=== PATIENT | male | born 1970 | race Caucasian/White ===

== ENCOUNTER 2018-01-18 03:02 | Inpatient (IN) | payer MEDICARE, MEDICAID ==
[2018-01-18] MEDS: OCTREOTIDE 50 MCG in SOD CHLORIDE 0.9% 25 ML IVPB (04:30)
[2018-01-18] MEDS: SOD CHLORIDE 0.9% 1,000 ML IV (04:41)
[2018-01-18] MEDS: PANTOPRAZOLE 40 MG INJ IV (04:41)
[2018-01-18] MEDS: ONDANSETRON 4 MG INJ IV ×3 (04:41→20:46)
[2018-01-18] MEDS: morphine 4 MG/ML VIAL IV ×2 (04:42→07:14)
[2018-01-18] MEDS: OCTREOTIDE 500 MCG in SOD CHLORIDE 0.9% 49 ML IV (04:45)
[2018-01-18] MEDS: PANTOPRAZOLE IV 80 MG in SOD CHLORIDE 0.9% 100 ML IV ×2 (04:45→19:11)
[2018-01-18 05:16] LABS: WHITE BLOOD COUNT 1.6 10^3/ul (4.8-10.8)
[2018-01-18 05:16] LABS: ABNORMAL IP MESSAGE 1; HEMATOCRIT 30.9 % (42.0-52.0); MEAN CORPUSCULAR HEMOGLOBIN 28.5 pg (29.0-33.0); MEAN CORPUSCULAR HGB CONC 32.4 g/dl (32.0-37.0); PLATELET COUNT 37 10^3/UL (140-415); POSITIVE DIFF @See below; RED BLOOD COUNT 3.51 10^6/ul (4.70-6.10); RED CELL DISTRIBUTION WIDTH 19.5 % (11.5-14.5)
[2018-01-18 05:29] LABS: ALANINE AMINOTRANSFERASE 60 IU/L (13-69); ALBUMIN 3.1 g/dl (3.3-4.9); ALBUMIN/GLOBULIN RATIO 0.88; ALKALINE PHOSPHATASE 241 IU/L (42-121); ANION GAP 16 (8-16); ASPARTATE AMINO TRANSFERASE 107 IU/L (15-46); BLOOD UREA NITROGEN 12 mg/dl (7-20); CALCIUM 8.7 mg/dl (8.4-10.2); CARBON DIOXIDE 25 mmol/L (21-31); CHLORIDE 111 mmol/L (97-110); CREATININE 0.64 mg/dl (0.61-1.24); GLUCOSE 79 mg/dl (70-220); LIPASE 42 U/L (23-300); POTASSIUM 4.1 mmol/L (3.5-5.1); SODIUM 148 mmol/L (135-144); TOTAL PROTEIN 6.6 g/dl (6.1-8.1)
[2018-01-18 05:33] LABS: INR 1.42; PROTIME 17.6 Sec (11.9-14.9); PT RATIO 1.4
[2018-01-18 05:34] LABS: PARTIAL THROMBOPLASTIN TIME 36.5 Sec (25.0-35.0)
[2018-01-18 05:55] LABS: ADD MAN DIFF? YES
[2018-01-18 05:57] LABS: PATH REVIEW? YES
[2018-01-18] MEDS ORDERED: NACL 0.9% 3 ML SYG IV (06:30)
[2018-01-18 06:42] LABS: ADD UMIC YES; UR ASCORBIC ACID 20 mg/dL (NEGATIVE); UR BILIRUBIN (Dip) NEGATIVE (NEGATIVE); UR BLOOD (Dip) 2+ mg/dL (NEGATIVE); UR CLARITY CLEAR (CLEAR); UR COLOR YELLOW (YELLOW); UR GLUCOSE (Dip) NEGATIVE (NEGATIVE); UR KETONES (Dip) NEGATIVE (NEGATIVE); UR LEUKOCYTE ESTERASE (Dip) NEGATIVE Leu/ul (NEGATIVE); UR NITRITE (Dip) NEGATIVE (NEGATIVE); UR RBC 6 /HPF (0-5); UR SPECIFIC GRAVITY (Dip) 1.015 (1.003-1.030); UR TOTAL PROTEIN (Dip) NEGATIVE (NEGATIVE); UR UROBILINOGEN (Dip) NEGATIVE (NEGATIVE); UR WBC 1 /HPF (0-5)
[2018-01-18 06:48] LABS: ANISOCYTOSIS 1+ (0-0); BAND NEUTROPHILS % (M) 6 % (0-4); EOSINOPHILS % (M) 7 % (0-7); GIANT THROMBO% (M) 1 % (0-0); HYPOCHROMASIA 1+ (0-0); LYMPHOCYTES #M 0.3 10^3/ul (0.8-2.9); LYMPHOCYTES % (M) 24 % (15-51); MICROCYTOSIS 1+ (0-0); MONOCYTE #M 0.1 10^3/ul (0.3-0.9); MONOCYTES % (M) 9 % (0-11); OVALOCYTES 1+ (0-0); PLATELET ESTIMATE SIG DECREASED; POIKILOCYTOSIS 2+ (0-0); POLYCHROMASIA 1+ (0-0); SEG NEUT #M 0.9 10^3/ul (1.6-7.5); SEGMENTED NEUTROPHILS (M) % 54 % (39-77)
[2018-01-18 07:11] LABS: CANNABINOIDS Negative (NEGATIVE)
[2018-01-18 07:23] LABS: AMPHETAMINE/METHAMPHETAMINE Negative (NEGATIVE); BARBITURATES Negative (NEGATIVE); BENZODIAZEPINES Positive (NEGATIVE); COCAINE Negative (NEGATIVE); OPIATES Positive (NEGATIVE)
[2018-01-18 09:16] LABS: HAAIG REFLEX REFLEX FILED
[2018-01-18 09:48] LABS: INR 1.34; PROTIME 16.8 Sec (11.9-14.9); PT RATIO 1.3
[2018-01-18 09:49] LABS: PARTIAL THROMBOPLASTIN TIME 31.2 Sec (25.0-35.0)
[2018-01-18] MEDS: SOD CHLORIDE 0.45% 1,000 ML IV ×3 (11:01→23:43)
[2018-01-18] MEDS: morphine 2 MG INJ IV ×3 (11:16→20:33)
[2018-01-18] MEDS: SOD CHLORIDE 0.9% 250 ML IV* (14:59)
[2018-01-18 15:45] LABS: HEPATITIS B SURFACE ANTIBODY NEGATIVE (NEGATIVE)
[2018-01-18 16:11] LABS: AMMONIA 111 umol/l (9-30)
[2018-01-18] MEDS: OCTREOTIDE 1 MG in DEXTROSE 5% 95 ML IV (17:00)
[2018-01-18 17:57] LABS: HEPATITIS B SURFACE ANTIGEN NEGATIVE (NEGATIVE)
[2018-01-18] MEDS ORDERED: PANTOPRAZOLE 40 MG INJ IV (18:00)
[2018-01-18 18:14] LABS: HEPATITIS B CORE ANTIBODY NEGATIVE (NEGATIVE); HEPATITIS C VIRAL ANTIBODY NEGATIVE (NEGATIVE)
[2018-01-18 18:37] LABS: HIV 1&2 ANTIBODY NEGATIVE (NEGATIVE)
[2018-01-18] MEDS: DIPHENHYDRAMINE 50 MG INJ IV (23:43)
[2018-01-19 00:09] LABS: TYPE AND SCREEN 1 1
[2018-01-19] MEDS: PANTOPRAZOLE IV 80 MG in SOD CHLORIDE 0.9% 100 ML IV ×3 (03:00→23:20)
[2018-01-19 05:25] LABS: WHITE BLOOD COUNT 1.4 10^3/ul (4.8-10.8)
[2018-01-19 05:25] LABS: ABNORMAL IP MESSAGE 1; HEMATOCRIT 29.4 % (42.0-52.0); HEMOGLOBIN 9.5 g/dl (14.0-18.0); MEAN CORPUSCULAR HGB CONC 32.3 g/dl (32.0-37.0); MEAN CORPUSCULAR VOLUME 89.6 fl (82.0-101.0); PLATELET COUNT 35 10^3/UL (140-415); POSITIVE DIFF @See below; RED BLOOD COUNT 3.28 10^6/ul (4.70-6.10); RED CELL DISTRIBUTION WIDTH 19.1 % (11.5-14.5)
[2018-01-19 05:27] LABS: ADD MAN DIFF? YES
[2018-01-19 05:47] LABS: CHOL/HDL RATIO 2.5 RATIO; CHOLESTEROL 106 mg/dl (100-200); HDL CHOLESTEROL 42 mg/dl (27-67); LDL CHOLESTEROL,CALCULATED 54 mg/dl; TRIGLYCERIDES 50 mg/dl (0-149)
[2018-01-19 05:47] LABS: MAGNESIUM 1.4 mg/dl (1.7-2.5)
[2018-01-19 05:56] LABS: HEMOGLOBIN A1C 4.6 % (0-5.9)
[2018-01-19 05:59] LABS: INR 1.51; PROTIME 18.5 Sec (11.9-14.9); PT RATIO 1.4
[2018-01-19] MEDS: morphine 2 MG INJ IV ×4 (08:27→23:06)
[2018-01-19] MEDS: ONDANSETRON 4 MG INJ IV ×3 (08:32→23:14)
[2018-01-19] MEDS: DIPHENHYDRAMINE 50 MG INJ IV ×2 (08:33→18:03)
[2018-01-19 09:13] LABS: ANISOCYTOSIS 1+ (0-0); BAND NEUTROPHILS % (M) 5 % (0-4); EOSINOPHILS % (M) 7 % (0-7); LYMPHOCYTES #M 0.3 10^3/ul (0.8-2.9); LYMPHOCYTES % (M) 24 % (15-51); METAMYELOCYTES %M 1 % (0-0); MICROCYTOSIS 1+ (0-0); MONOCYTE #M 0.1 10^3/ul (0.3-0.9); MONOCYTES % (M) 13 % (0-11); PLATELET ESTIMATE SIG DECREASED; POIKILOCYTOSIS 2+ (0-0); POLYCHROMASIA 3+ (0-0); SEG NEUT #M 0.7 10^3/ul (1.6-7.5); SEGMENTED NEUTROPHILS (M) % 50 % (39-77); SMUDGE%M 5 % (0-0)
[2018-01-19] MEDS: SPIRONOLACTONE 50 MG TAB PO (11:22)
[2018-01-19] MEDS: FUROSEMIDE 40 MG TAB PO (11:25)
[2018-01-19] MEDS: MAGNESIUM SULFATE 3 GM in DEXTROSE 5% 100 ML IVPB (11:26)
[2018-01-19] MEDS: OCTREOTIDE 1 MG in DEXTROSE 5% 95 ML IV (13:23)
[2018-01-19] MEDS: PROPOFOL 20 ML (14:47)
[2018-01-19] MEDS: MIDAZOLAM 1 MG/ML 2 ML INJ (14:47)
[2018-01-19] MEDS ORDERED: ONDANSETRON 4 MG INJ IV (15:00)
[2018-01-19] MEDS ORDERED: HYDROmorphONE (0.2 MG/ML) 10ML SYG IV (15:00)
[2018-01-19] MEDS: SOD CHLORIDE 0.45% 1,000 ML IV (15:28)
[2018-01-19 16:19] LABS: ABNORMAL IP MESSAGE 1; HEMATOCRIT 28.2 % (42.0-52.0); HEMOGLOBIN 9.4 g/dl (14.0-18.0); MEAN CORPUSCULAR HEMOGLOBIN 29.4 pg (29.0-33.0); MEAN CORPUSCULAR HGB CONC 33.3 g/dl (32.0-37.0); MEAN CORPUSCULAR VOLUME 88.1 fl (82.0-101.0); POSITIVE DIFF @See below; RED CELL DISTRIBUTION WIDTH 18.8 % (11.5-14.5)
[2018-01-19 16:20] LABS: WHITE BLOOD COUNT 1.7 10^3/ul (4.8-10.8)
[2018-01-19 16:21] LABS: ADD MAN DIFF? YES; PLATELET COUNT 35 10^3/UL (140-415)
[2018-01-19 16:44] LABS: BAND NEUTROPHILS % (M) 2 % (0-4); EOSINOPHILS % (M) 6 % (0-7); LYMPHOCYTES #M 0.2 10^3/ul (0.8-2.9); LYMPHOCYTES % (M) 14 % (15-51); MICROCYTOSIS 1+ (0-0); MONOCYTE #M 0.1 10^3/ul (0.3-0.9); MONOCYTES % (M) 10 % (0-11); PLATELET ESTIMATE SIG DECREASED; SEG NEUT #M 1.2 10^3/ul (1.6-7.5); SEGMENTED NEUTROPHILS (M) % 69 % (39-77); SMUDGE%M 104 % (0-0)
[2018-01-19 20:23] LABS: ADD MAN DIFF? NO
[2018-01-19 20:27] LABS: ABNORMAL IP MESSAGE 1; BASOPHILS % 0.6 % (0.0-2.0); EOSINOPHILS # 0.1 10^3/ul (0.0-0.5); EOSINOPHILS % 6.1 % (0.0-7.0); HEMATOCRIT 29.1 % (42.0-52.0); HEMOGLOBIN 9.7 g/dl (14.0-18.0); LYMPHOCYTES # 0.3 10^3/ul (0.8-2.9); LYMPHOCYTES % 14.9 % (15.0-51.0); MEAN CORPUSCULAR HEMOGLOBIN 29.5 pg (29.0-33.0); MEAN CORPUSCULAR HGB CONC 33.3 g/dl (32.0-37.0); MEAN CORPUSCULAR VOLUME 88.4 fl (82.0-101.0); MONOCYTE # 0.3 10^3/ul (0.3-0.9); MONOCYTES % 16.6 % (0.0-11.0); NEUTROPHIL # 1.1 10^3/ul (1.6-7.5); NEUTROPHILS % 61.8 % (39.0-77.0); POSITIVE DIFF @See below; RED BLOOD COUNT 3.29 10^6/ul (4.70-6.10)
[2018-01-19 20:33] LABS: WHITE BLOOD COUNT 1.8 10^3/ul (4.8-10.8)
[2018-01-19 20:33] LABS: PLATELET COUNT 35 10^3/UL (140-415)
[2018-01-20] MEDS: DIPHENHYDRAMINE 50 MG INJ IV ×4 (01:24→23:46)
[2018-01-20] MEDS: SOD CHLORIDE 0.45% 1,000 ML IV (02:35)
[2018-01-20 03:13] LABS: ADD MAN DIFF? NO
[2018-01-20 03:17] LABS: ABNORMAL IP MESSAGE 1; BASOPHILS % 0.5 % (0.0-2.0); EOSINOPHILS # 0.1 10^3/ul (0.0-0.5); EOSINOPHILS % 6.3 % (0.0-7.0); HEMATOCRIT 32.3 % (42.0-52.0); HEMOGLOBIN 10.6 g/dl (14.0-18.0); LYMPHOCYTES # 0.2 10^3/ul (0.8-2.9); LYMPHOCYTES % 12.1 % (15.0-51.0); MEAN CORPUSCULAR HEMOGLOBIN 28.9 pg (29.0-33.0); MEAN CORPUSCULAR HGB CONC 32.8 g/dl (32.0-37.0); MONOCYTE # 0.3 10^3/ul (0.3-0.9); MONOCYTES % 14.7 % (0.0-11.0); NEUTROPHIL # 1.3 10^3/ul (1.6-7.5); NEUTROPHILS % 66.4 % (39.0-77.0); POSITIVE DIFF @See below; RED BLOOD COUNT 3.67 10^6/ul (4.70-6.10); RED CELL DISTRIBUTION WIDTH 18.9 % (11.5-14.5)
[2018-01-20 03:17] LABS: WHITE BLOOD COUNT 1.9 10^3/ul (4.8-10.8)
[2018-01-20 03:20] LABS: PLATELET COUNT 55 10^3/UL (140-415)
[2018-01-20] MEDS: LORAZEPAM 2 MG INJ IV ×2 (03:55→11:37)
[2018-01-20] MEDS: morphine 2 MG INJ IV ×5 (05:33→23:46)
[2018-01-20 08:15] LABS: WHITE BLOOD COUNT 1.5 10^3/ul (4.8-10.8)
[2018-01-20 08:15] LABS: ABNORMAL IP MESSAGE 1; HEMATOCRIT 29.7 % (42.0-52.0); MEAN CORPUSCULAR HEMOGLOBIN 29.7 pg (29.0-33.0); MEAN CORPUSCULAR HGB CONC 33.7 g/dl (32.0-37.0); MEAN CORPUSCULAR VOLUME 88.1 fl (82.0-101.0); PLATELET COUNT 32 10^3/UL (140-415); POSITIVE DIFF @See below; RED BLOOD COUNT 3.37 10^6/ul (4.70-6.10)
[2018-01-20 08:27] LABS: ADD MAN DIFF? YES
[2018-01-20 08:29] LABS: ANION GAP 10 (8-16); BLOOD UREA NITROGEN 12 mg/dl (7-20); CALCIUM 8.4 mg/dl (8.4-10.2); CARBON DIOXIDE 28 mmol/L (21-31); CHLORIDE 107 mmol/L (97-110); CREATININE 0.73 mg/dl (0.61-1.24); GLUCOSE 95 mg/dl (70-220); MAGNESIUM 1.3 mg/dl (1.7-2.5); POTASSIUM 4.3 mmol/L (3.5-5.1); SODIUM 141 mmol/L (135-144)
[2018-01-20] MEDS: PANTOPRAZOLE IV 80 MG in SOD CHLORIDE 0.9% 100 ML IV ×2 (09:00→11:02)
[2018-01-20] MEDS: OCTREOTIDE 1 MG in DEXTROSE 5% 95 ML IV ×2 (09:00→11:03)
[2018-01-20 09:48] LABS: ANISOCYTOSIS 1+ (0-0); BAND NEUTROPHILS #M 0.1 10^3/ul (0.0-0.6); BAND NEUTROPHILS % (M) 10 % (0-4); BASOPHILS % (M) 1 % (0-2); EOSINOPHILS % (M) 3 % (0-7); GIANT THROMBO% (M) 3 % (0-0); LYMPHOCYTES #M 0.4 10^3/ul (0.8-2.9); LYMPHOCYTES % (M) 28 % (15-51); MONOCYTE #M 0.2 10^3/ul (0.3-0.9); MONOCYTES % (M) 14 % (0-11); PLATELET ESTIMATE DECREASED; SEG NEUT #M 0.7 10^3/ul (1.6-7.5); SEGMENTED NEUTROPHILS (M) % 45 % (39-77); SMUDGE%M 22 % (0-0)
[2018-01-20] MEDS: SPIRONOLACTONE 50 MG TAB PO (09:52)
[2018-01-20] MEDS: FUROSEMIDE 40 MG TAB PO (09:52)
[2018-01-20] MEDS: ONDANSETRON 4 MG INJ IV (09:57)
[2018-01-20] MEDS: INFLUENZA VIRUS VACCINE 0.5 ML SYG IM* (11:44)
[2018-01-20] MEDS: FOLIC ACID 1 MG TAB PO (13:50)
[2018-01-20] MEDS: MAGNESIUM SULFATE 4 GM/100 ML 100 ML IVPB (13:50)
[2018-01-20] MEDS: SUCRALFATE (100 MG/ML) 10ML CUP PO ×3 (13:50→19:26)
[2018-01-20] MEDS: THIAMINE 100 MG TAB PO (13:50)
[2018-01-20] MEDS: CYANOCOBALAMIN 500 MCG TAB PO (13:51)
[2018-01-20] MEDS: PHYTONADIONE 10 MG/ML INJ SC (13:51)
[2018-01-20] MEDS: HYOSCYAMINE 0.125 MG TAB PO ×3 (14:30→22:10)
[2018-01-20] MEDS: PANTOPRAZOLE (EC) 40 MG TAB PO (17:53)
[2018-01-21 05:42] LABS: ADD MAN DIFF? NO
[2018-01-21 05:47] LABS: WHITE BLOOD COUNT 2.8 10^3/ul (4.8-10.8)
[2018-01-21 05:47] LABS: ABNORMAL IP MESSAGE 1; BASOPHILS % 0.7 % (0.0-2.0); EOSINOPHILS # 0.1 10^3/ul (0.0-0.5); EOSINOPHILS % 4.6 % (0.0-7.0); HEMATOCRIT 31.5 % (42.0-52.0); HEMOGLOBIN 10.4 g/dl (14.0-18.0); LYMPHOCYTES # 0.4 10^3/ul (0.8-2.9); LYMPHOCYTES % 15.5 % (15.0-51.0); MEAN CORPUSCULAR VOLUME 87.7 fl (82.0-101.0); MONOCYTE # 0.3 10^3/ul (0.3-0.9); NEUTROPHIL # 1.9 10^3/ul (1.6-7.5); NEUTROPHILS % 66.8 % (39.0-77.0); POSITIVE DIFF @See below; RED BLOOD COUNT 3.59 10^6/ul (4.70-6.10); RED CELL DISTRIBUTION WIDTH 19.1 % (11.5-14.5)
[2018-01-21] MEDS: PANTOPRAZOLE (EC) 40 MG TAB PO ×2 (05:55→18:17)
[2018-01-21 05:56] LABS: PLATELET COUNT 57 10^3/UL (140-415)
[2018-01-21] MEDS: morphine 2 MG INJ IV ×2 (05:56→14:27)
[2018-01-21] MEDS: HYOSCYAMINE 0.125 MG TAB PO ×6 (05:59→21:30)
[2018-01-21] MEDS: DIPHENHYDRAMINE 50 MG INJ IV ×2 (06:05→13:11)
[2018-01-21 06:13] LABS: ALANINE AMINOTRANSFERASE 44 IU/L (13-69); ALBUMIN 2.8 g/dl (3.3-4.9); ALBUMIN/GLOBULIN RATIO 0.84; ALKALINE PHOSPHATASE 133 IU/L (42-121); ANION GAP 9 (8-16); ASPARTATE AMINO TRANSFERASE 78 IU/L (15-46); BILIRUBIN,INDIRECT 2.2 mg/dl (0-1.1); BILIRUBIN,TOTAL 2.2 mg/dl (0.2-1.3); BLOOD UREA NITROGEN 14 mg/dl (7-20); CALCIUM 8.7 mg/dl (8.4-10.2); CARBON DIOXIDE 28 mmol/L (21-31); CHLORIDE 107 mmol/L (97-110); CREATININE 0.81 mg/dl (0.61-1.24); GLUCOSE 98 mg/dl (70-220); POTASSIUM 4.5 mmol/L (3.5-5.1); SODIUM 139 mmol/L (135-144); TOTAL PROTEIN 6.1 g/dl (6.1-8.1)
[2018-01-21 06:24] LABS: MAGNESIUM 1.6 mg/dl (1.7-2.5)
[2018-01-21] MEDS: SUCRALFATE (100 MG/ML) 10ML CUP PO ×4 (08:57→21:32)
[2018-01-21] MEDS: LACTULOSE 30ML CUP PO ×3 (08:57→21:30)
[2018-01-21] MEDS: SPIRONOLACTONE 50 MG TAB PO (08:58)
[2018-01-21] MEDS: FUROSEMIDE 40 MG TAB PO (09:00)
[2018-01-21] MEDS: RIFAXIMIN 200 MG TAB PO ×2 (12:34→21:29)
[2018-01-21] MEDS: ONDANSETRON 4 MG INJ IV (19:27)
[2018-01-22] MEDS: HYOSCYAMINE 0.125 MG TAB PO ×4 (01:43→13:37)
[2018-01-22] MEDS: morphine 2 MG INJ IV ×2 (03:44→09:48)
[2018-01-22] MEDS: PANTOPRAZOLE (EC) 40 MG TAB PO (05:31)
[2018-01-22] MEDS: LACTULOSE 30ML CUP PO ×2 (05:32→13:38)
[2018-01-22 07:40] LABS: ADD MAN DIFF? NO
[2018-01-22 07:48] LABS: ABNORMAL IP MESSAGE 1; BASOPHILS % 0.7 % (0.0-2.0); EOSINOPHILS # 0.1 10^3/ul (0.0-0.5); EOSINOPHILS % 4.1 % (0.0-7.0); HEMATOCRIT 31.4 % (42.0-52.0); HEMOGLOBIN 10.5 g/dl (14.0-18.0); LYMPHOCYTES # 0.4 10^3/ul (0.8-2.9); LYMPHOCYTES % 14.2 % (15.0-51.0); MEAN CORPUSCULAR HEMOGLOBIN 29.1 pg (29.0-33.0); MEAN CORPUSCULAR HGB CONC 33.4 g/dl (32.0-37.0); MONOCYTE # 0.2 10^3/ul (0.3-0.9); MONOCYTES % 8.1 % (0.0-11.0); NEUTROPHIL # 2.1 10^3/ul (1.6-7.5); NEUTROPHILS % 72.6 % (39.0-77.0); POSITIVE DIFF @See below; RED BLOOD COUNT 3.61 10^6/ul (4.70-6.10); RED CELL DISTRIBUTION WIDTH 19.5 % (11.5-14.5)
[2018-01-22 07:50] LABS: PLATELET COUNT 40 10^3/UL (140-415)
[2018-01-22 08:08] LABS: ALANINE AMINOTRANSFERASE 41 IU/L (13-69); ALBUMIN 2.9 g/dl (3.3-4.9); ALBUMIN/GLOBULIN RATIO 0.85; ALKALINE PHOSPHATASE 132 IU/L (42-121); ANION GAP 13 (8-16); ASPARTATE AMINO TRANSFERASE 73 IU/L (15-46); BLOOD UREA NITROGEN 18 mg/dl (7-20); CALCIUM 8.7 mg/dl (8.4-10.2); CARBON DIOXIDE 24 mmol/L (21-31); CHLORIDE 109 mmol/L (97-110); CREATININE 0.74 mg/dl (0.61-1.24); GLUCOSE 88 mg/dl (70-220); SODIUM 142 mmol/L (135-144); TOTAL PROTEIN 6.3 g/dl (6.1-8.1)
[2018-01-22 08:09] LABS: AMMONIA 71 umol/l (9-30)
[2018-01-22] MEDS: SUCRALFATE (100 MG/ML) 10ML CUP PO ×2 (08:41→13:37)
[2018-01-22] MEDS: SPIRONOLACTONE 50 MG TAB PO (08:42)
[2018-01-22] MEDS: RIFAXIMIN 200 MG TAB PO (08:42)
[2018-01-22] MEDS: FUROSEMIDE 40 MG TAB PO (08:42)
[2018-01-22] MEDS: DIPHENHYDRAMINE 50 MG INJ IV (10:30)
[2018-01-22] MEDS ORDERED: BARIUM SULF 2% 450 ML BTL (BERRY SMOOTHIE) PO (13:00)
[2018-01-23] MEDS ORDERED: PANTOPRAZOLE (EC) 40 MG TAB PO (06:00)
== END 2018-01-22 17:05 | disposition home or self-care (01) | DRG 378 ==
LOC: MS3 01-21 05:30 → MS4 01-21 17:43 → E/R 03:02 → MS3 06:01
PROC: 0DJ08ZZ Inspection of Upper Intestinal Tract, Via Natural or Artificial Opening Endoscopic (ICD-10-PCS; principal; 2018-01-19 13:45)
PROC: 6A550Z2 Pheresis of Platelets, Single (ICD-10-PCS; 2018-01-19 13:45)
DX: K92.0 Hematemesis (principal); D61.818 Other pancytopenia; K76.6 Portal hypertension; K70.30 Alcoholic cirrhosis of liver without ascites; F10.20 Alcohol dependence, uncomplicated; I83.90 Asymptomatic varicose veins of unspecified lower extremity; K70.0 Alcoholic fatty liver; Z90.49 Acquired absence of other specified parts of digestive tract; Z98.890 Other specified postprocedural states; I85.10 Secondary esophageal varices without bleeding; K70.40 Alcoholic hepatic failure without coma; K92.1 Melena
CPT/HCPCS: 36415; 36430; 76705; 80048; 80053; 80061; 80306; 80307; 81001; 82140; 83036; 83690; 83735; 84443; 85025; 85610; 85730; 86644; 86703; 86704; 86706; 86708; 86709; 86803; 86850; 86900; 86901; 86945; 87340; 96365; 96366; 96375; 96376; 99285-25